=== PATIENT | female | born 1990 | race Caucasian/White ===

== ENCOUNTER 2017-01-31 09:13 | Emergency (ER) | payer MEDICARE ==
[~2017-01-31] VITALS: Ht 170.2 cm; Wt 91.2 kg
[2017-01-31 10:18] LABS: BILIRUBIN,URINE NEGATIVE (NEGATIVE); KETONES,URINE NEGATIVE (NEGATIVE); LEUKOCYTE ESTERASE ,URINE NEGATIVE (NEGATIVE); NITRITE,URINE NEGATIVE (NEGATIVE); PROTEIN,URINE DIPSTICK NEGATIVE (NEGATIVE); URINE UROBILINOGEN 0.2 mg/dL (0.2 - 1)
[2017-01-31 10:21] LABS: PREGNANCY TEST, URINE NEGATIVE (NEGATIVE)
[2017-01-31 10:22] LABS: CLARITY,URINE SL CLOUDY (CLEAR); COLOR,URINE YELLOW (YELLOW)
[2017-01-31 11:10] LABS: EPITHELIAL CELLS,URINE RARE /LPF
[2017-01-31 11:41] VITALS: BP 109/63
== END 2017-01-31 11:50 | disposition home or self-care (01) ==
LOC: ER 09:13
DX: N93.9 Abnormal uterine and vaginal bleeding, unspecified (principal); N92.1 Excessive and frequent menstruation with irregular cycle
CPT/HCPCS: 81001; 81025; 87210; 87491; 87591; 99283